=== PATIENT | male | born 1960 | race Caucasian/White ===

== ENCOUNTER 2016-11-28 12:02 | Inpatient (IN) | payer BC ==
[~2016-11-28] VITALS: Ht 180.3 cm; Wt 86.8 kg
--- NOTE | ~2016-11-28 | DS ---
PATIENT'S NAME: ROBERTO BENDER [facility] AGE: 56 Y [address] ROOM: G3210 [place], [place] [address] LOCATION: [facility] ADMIT DATE: 11/28/2016 Discharge Summary DISCHARGE DATE: 12/13/2016 FAMILY PHYSICIAN: Yassine Chanel ATTENDING PHYSICIAN: Robby Maria DIAGNOSIS: Small bowel obstruction. SUMMARY: Roberto Bender is a 56-year-old male who transferred to [facility] from [place] on November 28 with small bowel obstruction. The patient had been symptomatic for approximately 1 to 2 weeks with abdominal bloating. He had been seen by a provider and a bowel regimen had been recommended. On November 26, he developed pain across the upper abdomen along with bloating. He subsequently presented to the emergency room early the following morning with pain, nausea, and vomiting. CT scan was done, that showed multiple loops of small bowel within the central and left abdomen that were distended with fluid and demonstrated prominent air-fluid levels. The more distal distended small bowel showed fecalization. The distal and terminal ileum were decompressed. An NG tube was placed at the time of admission. Initially, his symptoms seemed to improve, but then worsened again. Dr. Meredith evaluated the patient in [place] and recommended surgical exploration. The patient requested transfer to [facility]. Dr. Maria evaluated the patient and ultimately recommended exploratory laparotomy with release of bowel obstruction. Risks, benefits, and alternatives were discussed and the patient agreed to proceed. He received Invanz 1 gram IV preoperatively. The patient was taken to the operating room later that day. Please see Dr. Maria's procedure note for specifics. He did undergo an extensive lysis of adhesions with repair of enterotomies. Postoperatively, activity was allowed as tolerated. NG tube was placed to low intermittent suction, Arriaza to dependent drainage, Kendalls were ordered for DVT prophylaxis along with Lovenox. Morphine WELDER along with IV acetaminophen was ordered for pain control. The patient had issues postoperatively with inadequate pain control when the WELDER was increased. He subsequently developed some confusion and hallucinations. He also had urinary retention after Arriaza was removed. The patient continued with high NG output for several days. Electrolytes were replaced as needed. On postop day #6, the NG tube had put out 3600 mL. An x-ray was obtained that showed the bowel to look better. The NG tube was pulled back about 10 cm. On postop day #8, attempts to clamp the NG tube were made, but he did not tolerate this initially. Arriaza catheter was removed and the patient was able to void. PPN was started per dietary recommendations on postop day #9. NG tube was removed on postop day #11. The patient's white blood cell count was up to 18.8. His urinalysis was negative. Blood and urine culture did show Gram-negative tiffanie and Levaquin was initiated. The patient's diet was started with clear liquids on postop day #12. His white blood cell count improved to 9.7. The patient PATIENT'S NAME: ROBERTO BENDER [facility] AGE: 56 Y [address] ROOM: [address] [address] LOCATION: [facility] ADMIT DATE: 11/28/2016 Discharge Summary DISCHARGE DATE: 12/13/2016 FAMILY PHYSICIAN: Yassine Chanel ATTENDING PHYSICIAN: Robby Maria continued to have some pain issues, but refused any narcotic pain medication due to the prior hallucinations. Tylenol was utilized as needed. He was advanced to full liquids on December 11 and surgical soft diet on December 12. PPN and lipids were discontinued on December 12. [place] were removed and benzoin and Steri-Strips were applied. On December 13, the patient was tolerating diet and was doing well. Arrangements were made for the patient to discharge home. DISCHARGE INSTRUCTIONS: Include no restrictions on diet. No lifting greater than 20 pounds. He will follow up with Dr. Maria in 11 days with the appointment being made December 24 at 02:15 p.m. DISCHARGE MEDICATIONS: 1. Continuing escitalopram 20 mg p.o. a.m. 2. MiraLax 17 grams p.o. daily. 3. Omeprazole 40 mg p.o. twice daily. 4. Tylenol 650 mg p.o. q.4 hours p.r.n. for pain. 5. Mobic 7.5 to 15 mg p.o. daily. 6. Excedrin Migraine 2 tablets p.o. daily p.r.n. for headache. 7. Mineral oil 1 dose p.o. daily. 8. Prescription was written for [place] 5/325 one to two p.o. q.4 hours p.r.n. for pain, dispensing 20 with no refills. A note was given to the patient allowing him to return to light duty in 1 to 2 weeks with no lifting greater than 20 pounds. He can resume full duty on December 30. For specifics on day-to-day care, please refer to the hospital chart. PINO SALVADOR PA-C FOR MD NAVA WYATT/cherie /[id number] d: 12/20/16 0416 t: 12/20/16 1125, DISCHARGE SUMMARY
--- NOTE | ~2016-11-28 | OR ---
PATIENT'S NAME: ROBERTO KHAN [facility] AGE: 56 Y [address] ROOM: [place] [address] LOCATION: [facility] ADMIT DATE: 11/28/2016 OR/Procedure Report DISCHARGE DATE: FAMILY PHYSICIAN: Yassine Chanel ATTENDING PHYSICIAN: Robby Maria SURGEON: Robby Maria MD QUALITY IMPROVEMENT COORDINATOR (RN): Eddie Luna PA-C DATE OF PROCEDURE: 11/28/2016 PREOPERATIVE DIAGNOSIS: Small bowel obstruction. POSTOPERATIVE DIAGNOSES: 1. Small bowel obstruction from extensive intraabdominal adhesions. 2. Incidental enterotomies. PROCEDURE PERFORMED: 1. Exploratory laparoscopy with lysis of adhesions. 2. Open lysis of adhesions with repair of incidental enterotomies. ANESTHESIA: General endotracheal. ESTIMATED BLOOD LOSS: 200 mL. SPECIMEN: None. REASON FOR PROCEDURE: The patient is a 56-year-old gentleman who has had several previous abdominal surgeries. He presented with a day history of progressive abdominal pain with a CT and x-ray suggestive of small-bowel obstruction. He initially was admitted to [place], but failed to improve to conservative management. They elected to transfer him here for ongoing treatment. We discussed the risks and benefits of surgery. FINDINGS: The patient had impressively extensive intraabdominal adhesions and it was quite a lengthy difficult operation. We started this laparoscopically and spent some time freeing up adhesions from the anterior abdominal wall. Ultimately, though we found a long section of bowel that was densely adherent to multiple loops and had to open a couple of small enterotomies that were closed. PROCEDURE IN DETAIL: The patient was taken to the operating suite and placed in the supine position. After general endotracheal anesthesia was obtained, the abdomen was prepped with ChloraPrep and sterilely draped. A Visiport was placed into the left upper quadrant and the pneumoperitoneum was obtained. We were able to get two other [address] There was quite dense adhesions of small bowel and omentum up to the anterior abdominal wall. PATIENT'S NAME: ROBERTO KHAN [facility] AGE: 56 Y [address] ROOM: [place] [address] LOCATION: [facility] ADMIT DATE: 11/28/2016 OR/Procedure Report DISCHARGE DATE: FAMILY PHYSICIAN: Yassine Chanel ATTENDING PHYSICIAN: Robby Maria Initially, we spent quite some time freeing these up this. This proved to be fairly difficult as the peritoneum had grown over the small bowel in this area. After about an hour, we were able to free up the small bowel from the anterior abdominal wall and began running the bowel. There was a very clear transition from markedly dilated bowel proximally to decompress distally. In between though, was a large ball of small bowel loops that were densely adherent to each other. Simply no way to free these up laparoscopically. We converted to a generous midline incision. We then began running the bowel, gradually freeing up adhesions sharply with scissors. This was a slow tedious process. The adhesions were quite thick and dense. Eventually, we were able to free up the bowel from ileocecal valve to the ligament of Treitz. As we ran the bowel a second time, a couple of small enterotomies were noted from the laparoscopic portion of the procedure. These were very small and were closed with some silk suture. We then ran the bowel a final time and did not see any other injuries. We felt like the obstruction had been taken care of. We washed out the abdomen. All irrigation was removed. The fascia and peritoneum were closed with looped PDS suture. The skins were closed with surgical chasity. POSTPROCEDURE PLAN: The patient will be sent to recovery and then to the floor. We will continue to fluid resuscitate him. I anticipate he is going to have a fairly lengthy recovery from the ileus. We will gradually await return of bowel function. He will be started on a CONTAMINATION CONSULTANT for pain control. MD LUCY WYATT/joannal /[id number] d: 12/02/162128 t: 12/09/162119, OPERATIVE SUMMARY
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
[2016-11-28] MEDS ORDERED: SEROQUEL50 MG PO (14:59)
[2016-11-28] MEDS ORDERED: ESCITALOPRAM OX20 MG PO (15:00)
[2016-11-28] MEDS ORDERED: MOBIC7.5 MG PO (15:01)
[2016-11-28] MEDS ORDERED: OMEPRAZOLE40 MG PO (15:02)
[2016-11-28] MEDS ORDERED: MIRALAX PO527 GM/BOT PO (15:02)
[2016-11-28] MEDS ORDERED: EXCEDRIN MIGRA1 EACH PO (15:03)
[2016-11-28] MEDS ORDERED: [UNRECOGNIZED DRUG - OTHER] PO (15:05)
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
--- NOTE | 2016-11-29 03:33 | NUR ---
Significant Event: PT RETURNED FROM PACU AROUND 2024. HAD OPEN LYSIS OF ADHESIONS. 2 LAP SITES TO L ABDOMEN, DRESSING INTACT. 1 INCISION TO MID ABD, DRESSING INTACT WITH MARKED DRAINAGE. IVF RUNNING TO L HAND. SALINE LOCK TO R FA. MORPHINE PARBOILER RUNNING 1MG CONTINUOUS, 1 DEMAND, 6 MIN LOCKOUT. HAD 5 DEMANDS AND 5 DELIVERIES. OLIVERA PATENT, DARK RUBENS URINE OUT. REMAINS NPO, MAY HAVE ICE CHIPS, HARD CANDY AND GUM. NG TO L NARE, LOW INTERMITTENT SUCTION. TOTAL 400ML OUTPUT. PT AMBULATED IN SEN X2 THIS SHIFT WITH GAITBELT AND 1PA. POST OP VITAL STABLE, ARRIVED ON 4L O2, CURRENTLY DOWN TO 2L. Follow up: AMBULATE, CONTINUE TO MONITOR
[2016-11-29 05:21] LABS: HEMATOCRIT 42.9 % (37.0-53.0); HEMOGLOBIN 14.8 g/dL (12.0-17.0); MCH 31.8 pg (27.0-34.0); MCHC 34.5 gm/dL (32.0-36.5); MCV 92.3 fl (83.0-98.0); MPV 10.8 fl (9.4-12.4); PLATELET COUNT 164 K/uL (150-450); RBC 4.65 M/uL (4.00-6.00); RDW-CV 12.4 % (11.9-14.6); WBC 3.1 K/uL (4.0-11.0)
[2016-11-29 05:43] LABS: ALBUMIN 2.6 gm/dL (3.5-5.0); ANION GAP 11.3 (10.0-19.0); CALCIUM 7.9 mg/dL (8.5-10.5); CREATININE 1.4 mg/dL (0.6-1.3); POTASSIUM 5.3 mMol/L (3.7-5.1); TOTAL BILIRUBIN 1.4 mg/dL (0.0-1.5); TOTAL PROTEIN 5.7 g/dL (6.0-8.4)
[2016-11-29 06:07] LABS: ABSOLUTE NEUTROPHIL CT (ANC) 2.2 K/uL (1.4-9.0); BANDED NEUTROPHIL # 1.7 K/uL (0.0-0.1); BANDED NEUTROPHILS % 54 %; LYMPHOCYTE # 0.4 K/uL (0.8-4.0); LYMPHOCYTE % 14 %; MONOCYTE # 0.2 K/uL (0.0-1.0); SEGMENTED NEUTROPHIL # 0.5 K/uL (1.4-9.0); SEGMENTED NEUTROPHIL % 16 %
--- NOTE | 2016-11-29 12:03 | NUR ---
Introduced self and care management services to patient. Lives in [place] with girlfriend, is independent at home. Denies concerns about going home on discharge, denies needs today. Will follow.
--- NOTE | 2016-11-29 17:50 | NUR ---
AAOx3. Cooperative with cares. Up w/SBA, GB and IV pole. VSS, afebrile, on 2liters O2; tried to titrate down w/out success. NPO w/ice/hard candy/gum. NG tube to LIS w/350ml output. CHloraseptic spray @BS. Arriaza pulled @1300 today w/no void or urge. Bilat PIVs w/IVF to LH @125ml/hr w/Morphine MOVIE EDITOR increased to 1mg cont/2mg demand/6min LO w/38 demands and 34 deliveries r/t increased pain 10+/10. Also gave 4mg Morphine IVP @that time. Pain now 2-3/10 consistently. Ambulated in halls x2; needs 2-3more tonight. Midline abdominal dressings dry/intact.
[2016-11-30 05:18] LABS: HEMOGLOBIN 13.1 g/dL (12.0-17.0); MCH 31.7 pg (27.0-34.0); MCHC 34.5 gm/dL (32.0-36.5); MPV 11.2 fl (9.4-12.4); PLATELET COUNT 148 K/uL (150-450); RBC 4.13 M/uL (4.00-6.00); RDW-CV 12.1 % (11.9-14.6); WBC 5.3 K/uL (4.0-11.0)
[2016-11-30 05:35] LABS: ALBUMIN 2.4 gm/dL (3.5-5.0); ANION GAP 7.2 (10.0-19.0); CALCIUM 8.2 mg/dL (8.5-10.5); POTASSIUM 4.2 mMol/L (3.7-5.1)
[2016-11-30 05:36] LABS: PHOSPHORUS 1.9 mg/dL (2.5-4.9)
[2016-11-30 06:17] LABS: ABSOLUTE NEUTROPHIL CT (ANC) 3.8 K/uL (1.4-9.0); BANDED NEUTROPHIL # 2.4 K/uL (0.0-0.1); BANDED NEUTROPHILS % 45 %; LYMPHOCYTE # 0.5 K/uL (0.8-4.0); LYMPHOCYTE % 9 %; MONOCYTE # 0.8 K/uL (0.0-1.0); SEGMENTED NEUTROPHIL # 1.4 K/uL (1.4-9.0); SEGMENTED NEUTROPHIL % 26 %
--- NOTE | 2016-11-30 06:46 | NUR ---
Significant Event: A/O X3 AND COOPERATIVE WITH CARES. LAP SITES X2 TO L) ABD AND MIDLINE INCISION WITH OLD SHADOW DRAINAGE. NG TO L) NARE, LIS WITH 375ML OUT OF GREEN DRAINAGE. RARE BOWEL SOUNDS. IS BELCHING BUT NO FLATUS. OLIVERA REMOVED BY PRIOR SHIFT AND UNABLE TO VOID, REPLACED OLIVERA AND HAD 1050ML OUT. IV TO L) HAND HAS GOOD BLOOD RETURN AND IV FLUIDS INFUSING WITHOUT DIFFICULTY. SALINE LOCK TO R) FA. CONTINUES ON MORPHINE STEAM CLEANER WITH 47.54MG IN WITH 19 DEMANDS/GIVEN. IS A LOT MORE COMFORTABLE THIS SHIFT, REMINDING PATIENT TO STAY ON TOP OF HITTING PAIN BUTTON AND NOT GETTING BEHIND. ENCOURAGING AMBULATION. UP WITH CHAIR LATE THIS SHIFT AND ALSO GAVE A BREAK FROM THE PNEUMATICE PER PATIENT REQUEST. DID SLEEP FOR SHORT PERIODS THIS SHIFT. NPO, BUT MAY HAVE ICE CHIPS. HAS CHLORACEPIC SPRAY AT BEDSIDE. VSS AND AFEBRILE. Follow up:
--- NOTE | 2016-11-30 15:09 | NUR ---
Significant event: patient is alert and oriented. VSS on 1 liter of O2. NG continues at low intermittent suction. IV to left hand, with fluids and right forearm is saline locked. Has ambulated x2 so far today. ELECTRIC ORGAN CHECKER at 1 continous, 2 bolus and 6min lock. Arriaza in place and is patent. Bowel sounds are hypoactive in upper and rare in lower. Is belching but no flatus yet. Cooperative with cares.
--- NOTE | 2016-11-30 16:40 | NUR ---
D: I assumed care of patient at 1500 from Ronnie. Patient up to chair and ambulated back to bed without difficulty. Patient continues to be on a morphine REACH TRUCK OPERATOR pump (11 demands, 11 deliveries, 33.5 mg infused) NG to low interm. suction (500ml green thin drainage) and indwelling armenta to dependent drainage (700 clear yellow). Patient incision remains covered with old drainage noted on dressing. Bowel sounds hypoactive to rare and abdomen rounded.
--- NOTE | 2016-12-01 04:20 | NUR ---
Significant Event:Patient very anxious at start of shift. Ambulated in hallway with two assist and was up to chair. Almost tearful at times. States the pain medication is makes him feel funny and would prefer tylenol and oral medication. Last dose of IV tylenol at 1999. Arriaza with 1300 out, MYRANDA with 350 out. Finally settled down and rested until around 0400 when he woke up and was again anxious, having more pain. Up to chair at this time. Encouraged patient to use VEHICLE ASSEMBLY INSPECTOR. Follow up:Continue to monitor.
[2016-12-01 04:42] LABS: HEMATOCRIT 32.8 % (37.0-53.0); HEMOGLOBIN 11.5 g/dL (12.0-17.0); MCH 31.7 pg (27.0-34.0); MCHC 35.1 gm/dL (32.0-36.5); MCV 90.4 fl (83.0-98.0); PLATELET COUNT 163 K/uL (150-450); RBC 3.63 M/uL (4.00-6.00); RDW-CV 11.9 % (11.9-14.6); WBC 2.9 K/uL (4.0-11.0)
[2016-12-01 04:55] LABS: ALBUMIN 2.1 gm/dL (3.5-5.0); ANION GAP 8.3 (10.0-19.0); BLOOD UREA NITROGEN 11 mg/dL (6-24); CHLORIDE 98 mMol/L (96-110); CO2 30 mMol/L (22-32); CREATININE 0.8 mg/dL (0.6-1.3); POTASSIUM 3.3 mMol/L (3.7-5.1); SODIUM 133 mMol/L (135-145)
[2016-12-01 04:57] LABS: PHOSPHORUS 1.6 mg/dL (2.5-4.9)
[2016-12-01 05:46] LABS: BANDED NEUTROPHIL # 0.5 K/uL (0.0-0.1); BANDED NEUTROPHILS % 18 %; LYMPHOCYTE # 0.5 K/uL (0.8-4.0); LYMPHOCYTE % 16 %; MONOCYTE # 0.4 K/uL (0.0-1.0); SEGMENTED NEUTROPHIL # 1.5 K/uL (1.4-9.0); SEGMENTED NEUTROPHIL % 51 %
--- NOTE | 2016-12-01 16:08 | NUR ---
D: Patient vital sign stable patient afebrile. Patient has been up in vann x 3 with much encouragement. NG continues to drain thin green drainage, armenta yellow clear urine (to be discontinued at 0600), BOOKSEAMER BLINDSTITCH 56 mg in . Patient continues to be anxious and needs much encouragement to work on coping with discomfort, and encouragement to use BOOKSEAMER BLINDSTITCH. Patient midline incision dressing intact with old drainage. Lap sites dressings intact. Patient bowel sounds hypo to rare and patient denies any flatus at this time.
[2016-12-02 04:22] LABS: ANION GAP 10.1 (10.0-19.0); BLOOD UREA NITROGEN 9 mg/dL (6-24); CALCIUM 7.7 mg/dL (8.5-10.5); CHLORIDE 95 mMol/L (96-110); CO2 31 mMol/L (22-32); CREATININE 0.8 mg/dL (0.6-1.3); PHOSPHORUS 2.6 mg/dL (2.5-4.9); POTASSIUM 3.1 mMol/L (3.7-5.1); SODIUM 133 mMol/L (135-145)
[2016-12-02 04:26] LABS: ALBUMIN 1.9 gm/dL (3.5-5.0)
--- NOTE | 2016-12-02 05:12 | NUR ---
Significant Event: Patient less anxious tonight than last night. Ambulated x 2. Stated he would like to have a walking scheduled of at least 5 times a day. Reports pain of 4-5 most of the time. Dressing to abdomen removed and is slightly reddened. Vitals stable. Arriaza with 550 out of dark joyce urine and 1000mg out of the NG. Stated he would like to have pastoral care come to see him today. Follow up:Pastoral care
--- NOTE | 2016-12-02 18:07 | NUR ---
Significant Event:Is A/O.Was pretty confused this morning & said it was the MS.Morphine HAND PRINTED CIRCUIT BOARD ASSEMBLER dc'd at 1100.Abd.distended & firm.Passing no flatus/no stools.Abd incision intact with chasity.2 abd stab sites with steristrips.Had dilaudid 1mg IV at 1645.Unable to void so put cath back in at 1715 and got 650ml back right away.Has been up in chair & amb.in vann with 1 assist.Needs alot of encouragement. Follow up:
[2016-12-03 05:10] LABS: HEMATOCRIT 32.3 % (37.0-53.0); HEMOGLOBIN 11.6 g/dL (12.0-17.0); MCHC 35.9 gm/dL (32.0-36.5); MCV 89.2 fl (83.0-98.0); MPV 10.4 fl (9.4-12.4); RBC 3.62 M/uL (4.00-6.00); RDW-CV 11.7 % (11.9-14.6); WBC 5.2 K/uL (4.0-11.0)
[2016-12-03 05:11] LABS: PLATELET COUNT 235 K/uL (150-450)
[2016-12-03 05:37] LABS: ANION GAP 10.3 (10.0-19.0); BLOOD UREA NITROGEN 7 mg/dL (6-24); CALCIUM 8.3 mg/dL (8.5-10.5); CHLORIDE 101 mMol/L (96-110); CO2 28 mMol/L (22-32); CREATININE 0.7 mg/dL (0.6-1.3); MAGNESIUM 2.3 mg/dL (1.8-2.6); POTASSIUM 3.3 mMol/L (3.7-5.1); SODIUM 136 mMol/L (135-145)
[2016-12-03 05:38] LABS: ALBUMIN 1.9 gm/dL (3.5-5.0)
[2016-12-03 05:41] LABS: ABSOLUTE NEUTROPHIL CT (ANC) 3.7 K/uL (1.4-9.0); BANDED NEUTROPHIL # 0.7 K/uL (0.0-0.1); BANDED NEUTROPHILS % 14 %; LYMPHOCYTE # 0.8 K/uL (0.8-4.0); LYMPHOCYTE % 16 %; MONOCYTE # 0.5 K/uL (0.0-1.0); SEGMENTED NEUTROPHIL % 57 %
--- NOTE | 2016-12-03 06:10 | NUR ---
Significant Event: PATIENT IS ALERT AND ORIENTED FORGETFUL AT TIMES. AMBULATES WITH ONE PERSON GB ASSIST. VSS. ON 1 L OF O2. NG TO L NARE WITH LOW-INTERMITENT SUCTION 1050 OUT. ABDOMINAL INCISION WITH RODOLFO AND PUNCTURE WOUNDS X2. ABDOMEN IS RED AND WARM TO TOUCH. DILADID GIVEN AT 2120. NPO. Follow up:
--- NOTE | 2016-12-03 13:26 | NUR ---
A - PT SCREENED D/T LOS. PT S/P OPEN LYSIS OF ADHESIONS 11/29. K+ 3.3, GLU 124, BUN/CORN SHELLER 7/0.7, ALB 1.9. PT W/ NG TO LIS, 1050 ML OUT OVERNIGHT. RARE BS. NO EDEMA. MEDS NOTED. PT IS NPO. EST NEEDS: 2400 KCALS, 95-115 GM PROTEIN, 1 ML/KCAL FLUIDS. D - AT RISK W/ INADEQUATE NUTRIENT INTAKE R/T NEED FOR BOWEL REST S/P SURGERY AEB NPO STATUS. I - GOAL: NUTRITION SOURCE IN 24-48 HRS. M/E - IF UNABLE TO BEGIN DIET IN 24-48 HRS CONSIDER PPN AT 100 ML/HR W/ 20% DAILY LIPIDS = 2224 KCALS, 101 GM PROTEIN. WILL MONITOR GI FXN AND DIET STATUS. F/U IN 2-4 DAYS.
--- NOTE | 2016-12-03 16:30 | NUR ---
SPOKE TO PATIENT REGARDING CM AND OUR ROLE. PATIENT LIVES IN OWN HOME WITH CHILDREN. HE IS PLANNING ON RETURNING HOME ONCE HE IS READY FOR DISCHARGE. PATIENT DOES NOT ANTICPATE ANY DISCHARGE NEEDS AT THIS TIME. CM WILL CONT TO FOLLOW NEEDED.
--- NOTE | 2016-12-03 17:34 | NUR ---
Significant Event:Is A/O.NG Lt.nare to Rene with clear yellow urine.Abd incision with chasity.2 stab sites with steristrips.Sl reddened around incisional site.No flatus.Amb in vann with 1 assist.Has wanted nothing for pain.IV Lt.hand. Follow up:
--- NOTE | 2016-12-04 04:10 | NUR ---
Pt. alert and oriented. RA. VSS - hypertensive at times. NG L) nare with lots of output - low suction intermittant. Arriaza patent and draining joyce colored urine. 2 stab sites with steristrips - intact. Not much flatus. NO BM this shift. Ambulated in vann x2. Refuses pain medicine. IV in L) hand - fluids running. IV in R) hand - saline locked. Cooperative with cares.
[2016-12-04 09:52] LABS: ALBUMIN 2.2 gm/dL (3.5-5.0); ANION GAP 11.8 (10.0-19.0); CALCIUM 8.6 mg/dL (8.5-10.5); CHLORIDE 102 mMol/L (96-110); CO2 27 mMol/L (22-32); CREATININE 0.8 mg/dL (0.6-1.3); PHOSPHORUS 3.2 mg/dL (2.5-4.9); POTASSIUM 3.8 mMol/L (3.7-5.1); SODIUM 137 mMol/L (135-145)
[2016-12-04 09:53] LABS: BLOOD UREA NITROGEN 11 mg/dL (6-24)
--- NOTE | 2016-12-04 16:14 | NUR ---
Significant Event: Patient is alert and oriented x3. VSS and on RA. NG to the left nare- nose paper tape changed. Has had 1100 out in NG output. Dark green/brown. Has ambulated in the vann x4 thus far. Did pass gas one time during the walk, otherwise has not had any since. Rare bowel sounds. Denies nausea. Can have ice chips, hard candy and gum. Barely takes in any ice chips. L)hand IV and R)FA IV. L) hand has fluids infusing and R)FA is SL. Arriaza in place, cath cares completed. 2 stabs sites to the abdomen covered by steri-strips- intact. Midline abdominal incison that is stapled and intact. Given 2 doses of IV scheduled tylenol, otherwise refuses all other pain medications. Cooperative with cares.
--- NOTE | 2016-12-05 04:45 | NUR ---
Pt. alert and oriented. VSS. RA. 1 assist with walker. NG in L) nare with much less output than yesterday. Suction on low intermittant. Arriaza patent and draining joyce urine. 2 stab sites with steristrips. Midline incision with chasity. Not much flatus. Walked x2 in vann this shift. BM x1 - formed. NPO with ice chips but pt. does not want any. Pt. refuses pain medicine but did get 4 doses of tylenol. IV in R) arm - saline locked. IV in L) hand - fluids running. Denies nausea. Did not sleept well. Cooperative with cares.
[2016-12-05 05:57] LABS: ALBUMIN 2.1 gm/dL (3.5-5.0); ANION GAP 11.8 (10.0-19.0); BLOOD UREA NITROGEN 11 mg/dL (6-24); CALCIUM 8.4 mg/dL (8.5-10.5); CHLORIDE 104 mMol/L (96-110); CO2 25 mMol/L (22-32); CREATININE 0.8 mg/dL (0.6-1.3); PHOSPHORUS 3.6 mg/dL (2.5-4.9); POTASSIUM 3.8 mMol/L (3.7-5.1); SODIUM 137 mMol/L (135-145)
--- NOTE | 2016-12-05 12:32 | NUR ---
A - NUTRITION F/U. GLU 170, BUN/COLLECTIONS PROFESSIONAL 11/0.8, ALB 2.1. BM X 2, LITTLE FLATUS, RARE BS. NG TO LIS. DIET: NPO ONE MORE DAY W/ NG PER CHART. D - AT RISK W/ INADEQUATE ORAL INTAKE R/T NEED FOR BOWEL REST S/P SURGERY. I - GOAL: NUTRITION SOURCE WITHIN 24 HOURS. M/E - 1)IF UNABLE TO ADVANCE DIET IN 24 HRS CONSIDER PPN AT 100 ML/HR W/ 20% LIPIDS DAILY = 2224 KCALS, 101 GM PROTEIN. 2) WILL SEND ENSURE CLEAR BID WHEN DIET RESUMES AND MONITOR ORAL INTAKE DIET ADVANCES. F/U IN 2-4 DAYS.
--- NOTE | 2016-12-05 15:14 | NUR ---
Significant Event: Patient is alert and oriented x3. VSS and on RA. Has ambulated in the vann 5 times today. Up with SBA and IV pole. Showered, shaved, and brushed teeth. Bedding changed. IVF infusing into the left hand. Other IV is in the R)FA, SL. NG tube to the left nare- still having output, less than yesterday, dark green/light brown. Did have another formed stool this morning. Total of 2 in the last 24 hours. Denies passing any gas though. Rare bowel sounds. Arriaza in place- has had some small blood clots pass through- joyce in color. Midline abdominal incision is stapled and edges are well approximated. 2 stab sites- steri - strips intact. May have ice chips, hard candy and gum. IV scheduled tylenol ordered for 4 doses. Rates pain at a 2. Cooperative with cares.
--- NOTE | 2016-12-06 05:08 | NUR ---
SIGNIFICANT EVENT: Pt alert & oriented. VSS at second assessment. NG to L) nare to intermittent low suction - 900 out. 1PA gaitbelt. PIV to L) hand infusing IVF at 125/hr. R) arm is SL. Small BM on 12/05/16 days - no BM this shift. 1PA. NPO. Pleasant and cooperative with cares.
--- NOTE | 2016-12-06 19:33 | NUR ---
Significant Event: PATIENT ALERT AND ORIENTED X3. MIDLINE ABDOMEN INCISION, RODOLFO INTACT, EDGES APPROXIMATED, BRUISING AT INCISIONAL SITE, NO DRAINAGE. STERI-STRIPS TO STAB SITES X2 L) ABDOMEN, NO DRAINAGE. OLIVERA CATHETER REMOVED AT 1015, VOIDED WITHOUT DIFFICULTY. HAD 2ND VOID AT 1830 WITH 175ML OUT. AMBULATED IN SEN X3 THIS SHIFT, UP TO CHAIR. NG TO L) NARE. 0830 NG CLAMPED FOR 4 HOURS, CHECKED RESIDUAL AT 1230 WITH 180ML OUT, Rachel VALLEJO NOTIFIED AND ORDER RECEIVED TO LEAVE NG TO SUCTION X 1 HOUR, THEN CLAMP FOR [address] REPE[address] RIOS SEE'S TOMORROW. PATIENT TO SUCTION AT 1300, CLAMPED AT 1400, AT 1530 PATIENT C/O INCREASE BLOATING/REFLUX, PATIENT NG TO SUCTION ON LOW INTERMITTENT SUCTION. IV RESTARTED TO L) WRIST BY SOCORRO Wilson RN. CALF PUMPS ON. HAD 250ML OUT OF NG. Follow up:
[2016-12-07 04:46] LABS: HEMATOCRIT 35.7 % (37.0-53.0); HEMOGLOBIN 12.4 g/dL (12.0-17.0); MCH 31.4 pg (27.0-34.0); MCHC 34.7 gm/dL (32.0-36.5); MCV 90.4 fl (83.0-98.0); MPV 9.6 fl (9.4-12.4); PLATELET COUNT 402 K/uL (150-450); RBC 3.95 M/uL (4.00-6.00); RDW-CV 11.9 % (11.9-14.6); WBC 12.7 K/uL (4.0-11.0)
[2016-12-07 04:59] LABS: BLOOD UREA NITROGEN 13 mg/dL (6-24); CALCIUM 8.7 mg/dL (8.5-10.5); CHLORIDE 102 mMol/L (96-110); CO2 25 mMol/L (22-32); CREATININE 0.8 mg/dL (0.6-1.3); SODIUM 135 mMol/L (135-145)
[2016-12-07 05:13] LABS: ABSOLUTE NEUTROPHIL CT (ANC) 11.2 K/uL (1.4-9.0); BANDED NEUTROPHIL # 0.4 K/uL (0.0-0.1); BANDED NEUTROPHILS % 3 %; LYMPHOCYTE # 0.4 K/uL (0.8-4.0); LYMPHOCYTE % 3 %; MONOCYTE # 0.8 K/uL (0.0-1.0); SEGMENTED NEUTROPHIL # 10.8 K/uL (1.4-9.0); SEGMENTED NEUTROPHIL % 85 %
--- NOTE | 2016-12-07 06:43 | NUR ---
Patient is alert and oriented, tachycardic, on room air. SBA with gait belt. Arriaza was removed and has voided once this shift. NG to L) nare, had 1850 ml out. Stab sites x2 are steri-strips, midline is stapled and open to air. Had a moderate BM last. No complaints of pain tonight.
--- NOTE | 2016-12-07 08:53 | NUR ---
A - NUTRITION F/U. GLU 117, BUN/TREE SAPPER 13/0.8. NG TO LIS, 1850 ML OUT. (+) BM. RARE BS. ABD DISTENDED. PT IS NPO. D - AT RISK W/ INADEQUATE NUTRIENT INTAKE RELATED TO NEED FOR BOWEL REST S/P SURGERY AEB NPO STATUS X 10 DAYS. I - GOAL: NUTRITION SOURCE VIA PN M/E - REC PPN AT 100 ML/HR W/ 20% DAILY LIPIDS = 2224 KCALS, 101 GM PROTEIN. WILL F/U IN 2-4 DAYS.
--- NOTE | 2016-12-07 17:17 | NUR ---
Significant Event:Is A/O.NG Lt.nare to BENNETT gardner.Is to BENNETT.IV restarted in Lt.outer forearm.Started PPN at 1725.Passing alittle flatus.Has had 4 semiloose stools.Abd incision with chasity.2 abd stab sites with steristrips.Has been up in chair & amb.in vann by self.Taking ice chips.Voiding in 100-200ml amts. Follow up:
[2016-12-08 04:50] LABS: ANION GAP 12.9 (10.0-19.0); POTASSIUM 3.9 mMol/L (3.7-5.1)
--- NOTE | 2016-12-08 08:45 | NUR ---
Significant Event: Pt Up ad james at times, enc to call for assistance in the night. NG to left nare with 600 out. C/o burning when urinating. TPN lipids infusing. Now daily wt, accurate I & O's. Cont monitor. Follow up:
[2016-12-08 10:18] LABS: BILIRUBIN URINE NEGATIVE (NEGATIVE); BLOOD URINE 50 /UL (NEGATIVE); COLOR URINE YELLOW (YELLOW); GLUCOSE URINE NEGATIVE (NEGATIVE); KETONE URINE NEGATIVE (NEGATIVE); LEUKOCYTES URINE NEGATIVE /UL (NEGATIVE); NITRITE URINE NEGATIVE (NEGATIVE); PROTEIN URINE 15 mg/dL (NEGATIVE); SPEC GRAVITY URINE 1.015 (1.003-1.035); TURBIDITY URINE CLEAR (CLEAR); UROBILINOGEN URINE 1 mg/dL (NORMAL)
[2016-12-08 10:26] LABS: BACTERIA URINE NEGATIVE (NEGATIVE); EPITHELIAL URINE RARE #/HPF (NEGATIVE); WBC URINE RARE #/HPF (NEGATIVE)
--- NOTE | 2016-12-08 18:41 | NUR ---
Significant Event:Is A/O.Voiding in 100-120ml amts.Less burning with voiding this afternoon.NG Lt.nare.Was clamped at 0830 for 4 1/2 hr and check residual which was maybe 20-30ml.Clamped again at 1330 for 4hrs.Residual at 1745 was again very minimal,maybe 30-40ml.Reclamped at 1810.Check residual at 2210.Keep checking every 4hrs.Is amb in vann by self.Passing some flatus.Had 2 small semiformed lt.brown stools.No N/V.States is getting hungry.Sent urine down for C&S.No c/o pain.Abd incision with chasity & 2 stab sites with steristrips. Follow up:
[2016-12-09 04:48] LABS: BASOPHIL % 0.1 %; EOSINOPHIL # 0.1 K/uL (0.0-0.5); EOSINOPHIL % 0.4 %; HEMATOCRIT 33.5 % (37.0-53.0); HEMOGLOBIN 11.8 g/dL (12.0-17.0); IMMATURE GRANULOCYTE # 0.2 K/uL (0.0-0.3); LYMPHOCYTE # 0.8 K/uL (0.8-4.0); MCH 31.9 pg (27.0-34.0); MCHC 35.2 gm/dL (32.0-36.5); MCV 90.5 fl (83.0-98.0); MONOCYTE # 0.9 K/uL (0.0-1.0); MONOCYTE % 4.6 %; NEUTROPHIL # (ANC) 16.9 K/uL (1.4-9.0); NEUTROPHIL % 89.9 %; NRBC % 0 /100WBC (0-0.00); PLATELET COUNT 357 K/uL (150-450); RDW-CV 11.9 % (11.9-14.6)
[2016-12-09 04:50] LABS: WBC 18.8 K/uL (4.0-11.0)
[2016-12-09 04:58] LABS: INR - (THERAPEUTIC) 1.02 (0.92-1.07); PROTIME 10.7 SECONDS (9.8-11.4)
[2016-12-09 05:05] LABS: ALBUMIN 2.3 gm/dL (3.5-5.0); ALK PHOS 234 IU/L (33-138); ALT 80 IU/L (12-78); AST 45 IU/L (10-40); BLOOD UREA NITROGEN 11 mg/dL (6-24); CALCIUM 8.4 mg/dL (8.5-10.5); CHLORIDE 97 mMol/L (96-110); CO2 23 mMol/L (22-32); CREATININE 0.8 mg/dL (0.6-1.3); SODIUM 131 mMol/L (135-145); TOTAL PROTEIN 6.8 g/dL (6.0-8.4)
--- NOTE | 2016-12-09 05:26 | NUR ---
Significant Event: Pt alert and oriented. Up with assistance this shift. Has taken two showers this shift. NG clamped no residuals noted, howver NG does leak small amounts when clamped. TPN/Lipids cont to infuse. VSS, 99.0 t-max. Encouraged IS q hour and ambulation. Pt reports no gas this shift. No nausea, minimal pain. Midline incision approximated with chasity. Follow up: cont to monitor NG output.
--- NOTE | 2016-12-09 14:04 | NUR ---
Significant Event: Pt denies pain. Up ad james in room and halls. has had 2 bm's this shift. Residual was less than 5ml @ 0700, dc'd NG per order at 0845. Has had a non-productive cough, chest xray done and normal. Does have a UTI so will start on IV levoquin. Dc'd one of his IV's, was puffy and sore. Awaiting call back from PICC nurse to see if we can get a midline placed. Other IV has TPN/Lipids running in them. Follow up:
--- NOTE | 2016-12-10 01:41 | NUR ---
SIGNIFICANT EVENT: Pt alert & oriented. Tachycardic - 90 to 102. Other VS stable on RA. Liquid acetaminophen x1 at 5 for headache. L) wrist PIV DC'd. PIV to R) hand infusing TPN/lipids. Sip/ice chips/hard gum/candy - otherwise NPO. Q6h accuchecks. 1PA. Pleasant and cooperative with cares.
[2016-12-10 05:41] LABS: BASOPHIL % 0.2 %; EOSINOPHIL # 0.1 K/uL (0.0-0.5); EOSINOPHIL % 0.9 %; HEMATOCRIT 33.2 % (37.0-53.0); HEMOGLOBIN 11.6 g/dL (12.0-17.0); IMMATURE GRANULOCYTE # 0.2 K/uL (0.0-0.3); IMMATURE GRANULOCYTE % 1.6 %; LYMPHOCYTE # 0.6 K/uL (0.8-4.0); LYMPHOCYTE % 5.8 %; MCH 31.9 pg (27.0-34.0); MCHC 34.9 gm/dL (32.0-36.5); MCV 91.2 fl (83.0-98.0); MONOCYTE # 0.7 K/uL (0.0-1.0); MONOCYTE % 7.3 %; MPV 10.3 fl (9.4-12.4); NEUTROPHIL # (ANC) 8.2 K/uL (1.4-9.0); NEUTROPHIL % 84.2 %; NRBC % 0 /100WBC (0-0.00); PLATELET COUNT 334 K/uL (150-450); RBC 3.64 M/uL (4.00-6.00); RDW-CV 11.9 % (11.9-14.6); WBC 9.7 K/uL (4.0-11.0)
[2016-12-10 05:58] LABS: ALBUMIN 2.3 gm/dL (3.5-5.0); BLOOD UREA NITROGEN 14 mg/dL (6-24); CALCIUM 8.5 mg/dL (8.5-10.5); CHLORIDE 102 mMol/L (96-110); CO2 23 mMol/L (22-32); CREATININE 0.7 mg/dL (0.6-1.3); PHOSPHORUS 3.5 mg/dL (2.5-4.9); SODIUM 134 mMol/L (135-145)
--- NOTE | 2016-12-10 13:02 | NUR ---
A - NUTRITION F/U. NA+ 134, GLU 122, BUN/BEHAVIORAL HEALTH ASSISTANT 14/0.7, ALB 2.3. NG DC'D YESTERDAY. HYPO BS. STOOLING. DIET: CLEAR LIQUIDS INITIATED TODAY. PPN AT 100 ML/HR W/ 20% DAILY LIPIDS CONT PROVIDING 2224 KCALS, 101 GM PROTEIN. D - AT RISK W/ INADEQUATE ORAL INTAKE R/T PROLONGED NPO STATUS S/P SURGERY. I - GOAL: 50% INTAKE BY NEXT REVIEW. M/E - WILL SEND ENSURE CLEAR WHILE OF CL DIET AND CHANGE TO ENSURE ENLIVE WHEN DIET ADVANCES. WILL F/U IN 1-2 DAYS.
--- NOTE | 2016-12-10 17:00 | NUR ---
Significant Event: Alert and oriented X 3. Room air. SBP 100's and 110's. HR 90's. TPN infusing at 100 ml/hr. Possible that TPN will stop tomorrow. Patient diet changed to clear liquids. IV to right hand 20 gauge, flushes well with no blood return d/t being next to a valve. Q6 accuchecks 107, 110. Complaining about pain to the right of umbilicus when coughing. Applied ice to this area. Patient did walk 2 times in the hallway this shift. Zofran given at 1420 for bloating, patient stated that this did help. Tylenol given at 1558 for pain. Peripheral IV to right hand. Follow up:
--- NOTE | 2016-12-11 04:37 | NUR ---
SIGNIFICANT EVENT: Pt alert & oriented. Up ad james, calls if help is needed. Daily weight. Clear liquid diet - tolerating well. Denies pain/nausea this shift. VSS on RA. New PIV to L)FA infusing TPN and lipids. Q6h accuchecks. No BM this shift. Pleasant and cooperative with cares.
--- NOTE | 2016-12-11 12:49 | NUR ---
DIET ADVANCED FROM CLEAR LIQUIDS TO FULL LIQUIDS. ENSURE CLEAR D/C AND STARTED ENSURE ENLIVE BID.
--- NOTE | 2016-12-11 14:52 | NUR ---
Significant Event: Pt denies pain. Up ad james in room and in vann. Full liquid diet for lunch and at approx. 50% of it. Decreased TPN rate to 50ml/hr. Leah d/i to lower abd incision. Passing flatus and had a bm x1 this shift. Follow up:
--- NOTE | 2016-12-12 05:32 | NUR ---
Pt. alert and oriented. RA. VSS. IV to R) AC area - TPN/Lipids running. UAL in room and walked in hallway x2 this shift. Slept in chair most of night. Daily weight. Strict I&O. Clear liquid diet. Denies pain, n/v. Midline incision with chasity. 2 stab sites on L) side of abdomen with steristrips. Accuchecks every 6 hours. Cooperative with cares.
--- NOTE | 2016-12-12 11:39 | NUR ---
Student nurse removed 18 abdominal chasity and applied steri-stripes to incision site.
--- NOTE | 2016-12-12 13:55 | NUR ---
A-NUTRITION F/U PPN/LIPIDS D/C TODAY. (+)FLATUS, (+)BM. ABD RODOLFO REMOVED. 12/11 LABS: GLU 126, ALB 2.3 DIET RX: ADVANCED TO SOFT DIET TODAY. PO INTAKE 0-100%; PO INTAKE TRENDING UP. ENSURE ENLIVE BID. D-AT NUTRITION RISK W/INADEQUATE ORAL INTAKE R/T ALTERED GI FXN AEB EXTENDED NPO, RECENT PPN/LIPIDS, LIQUID DIET. I-CONTINUE W/ENSURE ENLIVE BID M/E-GOAL: PO INTAKE >/=50% BY NEXT F/U 1)F/U PO INTAKE, SUPPLEMENT, AND POC (3-5 DAYS) 2)ASSIST NEEDED
--- NOTE | 2016-12-12 15:36 | NUR ---
Significant Event:Is A/O.Started on surgical soft diet,katia.well.IV was dc'd due to leaking.Order to leave out if something would happen to it---so no IV access.Accuchecks dc'd.Stapes from midline abd incision were removed & benzoin & steristrips put over.Voiding ok.Passing flatus & having some loose stools.Is amb on own in halls.Prob.home tomorrow. Follow up:
--- NOTE | 2016-12-13 04:40 | NUR ---
Significant Event: Resting on and off for short periods tonight. Afebrile, all other VSS. Has denied the need for PRN pain medication. Drinking and voiding well. Bowel sounds active x4 quadrants. Patient state he is passing flatus. 1 large, loose, brown stool this shift. Abdomial incsions are approximated with steri-strips. No IV access. Ambulated in halls x4 this shift. Up in room independently. Pleasant and cooperative with cares. Follow up:
[2016-12-13 04:52] LABS: HEMATOCRIT 33.6 % (37.0-53.0); HEMOGLOBIN 11.7 g/dL (12.0-17.0); MCH 31.8 pg (27.0-34.0); MCHC 34.8 gm/dL (32.0-36.5); MCV 91.3 fl (83.0-98.0); MPV 10.3 fl (9.4-12.4); RBC 3.68 M/uL (4.00-6.00); WBC 5.5 K/uL (4.0-11.0)
[2016-12-13 04:53] LABS: PLATELET COUNT 494 K/uL (150-450)
[2016-12-13 05:20] LABS: ABSOLUTE NEUTROPHIL CT (ANC) 3.9 K/uL (1.4-9.0); BANDED NEUTROPHIL # 0.2 K/uL (0.0-0.1); BANDED NEUTROPHILS % 3 %; LYMPHOCYTE # 0.8 K/uL (0.8-4.0); LYMPHOCYTE % 15 %; MONOCYTE # 0.6 K/uL (0.0-1.0); SEGMENTED NEUTROPHIL # 3.7 K/uL (1.4-9.0); SEGMENTED NEUTROPHIL % 68 %
[2016-12-13] MEDS ORDERED: TYLENOL325 MG PO (08:55)
[2016-12-13] MEDS ORDERED: NORCO 5-325 TA1 EACH PO (08:56)
--- NOTE | 2016-12-13 09:40 | NUR ---
DISCHARGE: Pt. was explained discharge instructions, educated on small bowel obstruction and new medication: norco. No questions or concerns. Verbalized understanding of teaching. Left with all belongings, work note, and scripts. IV out. Taken to front door by aide and driven home by son, Julian.
--- NOTE | 2016-12-13 21:38 | NUR ---
Patient was discharged at 0944. No complications with discharge. Virtual nurse did all the teaching. Patient walked to the front door with primary nurse.
== END 2016-12-13 09:44 | disposition disaster alternative care site (69) | DRG 336 ==
LOC: GMSU 12:02
PROVIDERS: Physician Assistant; Surgery; ADMIT Surgery
PROC: 0DN80ZZ Release Small Intestine, Open Approach (ICD-10-PCS; principal; 2016-11-28)
DX: K56.5 Intestinal adhesions [bands] with obstruction (postinfection) (principal); R65.10 Systemic inflammatory response syndrome (SIRS) of non-infectious origin without acute organ dysfunction; N39.0 Urinary tract infection, site not specified; R11.10 Vomiting, unspecified; K21.0 Gastro-esophageal reflux disease with esophagitis; F32.9 Major depressive disorder, single episode, unspecified; Z87.891 Personal history of nicotine dependence; E87.6 Hypokalemia; M19.90 Unspecified osteoarthritis, unspecified site
CPT/HCPCS: C9113; J0131; J1170; J1335; J1650; J1885; J1956; J2001; J2175; J2270; J2405; J2795; J3010; J3480; J7030; J7040; J7050; J7120

== ENCOUNTER → 2016-11-28 | Outpatient (CLI) | payer BC ==
[~2016-11-28] MED LIST: ESCITALOPRAM OX20 MG PO; EXCEDRIN MIGRA1 EACH PO; MIRALAX PO527 GM/BOT PO; MOBIC7.5 MG PO; NORCO 5-325 TA1 EACH PO; OMEPRAZOLE40 MG PO; SEROQUEL50 MG PO; TYLENOL325 MG PO; [UNRECOGNIZED DRUG - OTHER] PO
== END | disposition disaster alternative care site (69) ==
LOC: GAMB 11:20
DX: R10.32 Left lower quadrant pain (principal); K56.60 Unspecified intestinal obstruction; R10.13 Epigastric pain
CPT/HCPCS: A0425; A0428